=== PATIENT | female | born 1995 | race Caucasian/White ===

== ENCOUNTER 2017-06-22 09:29 | Emergency (ER) | payer OTHER ==
[~2017-06-22] VITALS: Ht 157.5 cm; Wt 57.0 kg
[2017-06-22 09:58] VITALS: BP 112/70
[2017-06-22] MEDS ORDERED: CEPH500C5 PO (11:12)
== END 2017-06-22 11:42 | disposition home or self-care (01) ==
LOC: ER 09:30
DX: L03.011 Cellulitis of right finger (principal); J45.909 Unspecified asthma, uncomplicated; F12.10 Cannabis abuse, uncomplicated; Z90.89 Acquired absence of other organs
CPT/HCPCS: 99283

== ENCOUNTER 2018-09-29 04:44 | Emergency (ER) | payer SELFPAY ==
[~2018-09-29] VITALS: Ht 160 cm; Wt 54.5 kg
[2018-09-29] MEDS ORDERED: SUMAtriptan succ. 6 MG/0.5ml vial SQ ONE (05:45)
[2018-09-29] MEDS ORDERED: morphine 4 MG/ML inj SYRINge IV ONE (05:45)
[2018-09-29] MEDS ORDERED: ketorolac tromethamine 15mg/ml inj. IV ONE (05:45)
[2018-09-29] MEDS ORDERED: proCHLORperazine 10 MG/2 ml inj IV ONE (05:45)
[2018-09-29] MEDS ORDERED: normal saline 1000ML IV soln IVB ONE (05:45)
[2018-09-29 06:16] VITALS: BP 125/73
== END 2018-09-29 06:18 | disposition home or self-care (01) ==
LOC: ER 04:45
DX: D35.2 Benign neoplasm of pituitary gland (principal); R51 Headache; H53.8 Other visual disturbances; J45.909 Unspecified asthma, uncomplicated; F12.90 Cannabis use, unspecified, uncomplicated; F15.90 Other stimulant use, unspecified, uncomplicated; F14.90 Cocaine use, unspecified, uncomplicated; F19.90 Other psychoactive substance use, unspecified, uncomplicated; F17.200 Nicotine dependence, unspecified, uncomplicated; Z98.890 Other specified postprocedural states
CPT/HCPCS: 99283; J0780; J1885; J3030

== ENCOUNTER 2024-12-17 11:34 | Day surgery (SDC) | payer MEDICAID ==
[~2024-12-17] VITALS: Ht 162.6 cm; Wt 72.7 kg
[2024-12-17] VITALS (10 sets, daily range): BP systolic 96–120; BP diastolic 53–82; PULSE 59–85; RESP 10–16; TEMP 98.4; O2SAT 99–100
[~2024-12-17 11:34] MED LIST: NO HOME MEDS
[2024-12-17] MEDS: ringers solution, lacted 1,000 ML IV SCH (12:24)
[2024-12-17] MEDS ORDERED: midazolam 1 mg/ML 2ml injection ONE (13:41)
[2024-12-17] MEDS ORDERED: fentaNYL/PF 50MCG/1 ML 2ML syringe ONE (13:41)
[2024-12-17] MEDS ORDERED: propofol inj 20 ML IV ONE ×2 (13:50)
== END 2024-12-17 15:33 | disposition home or self-care (01) ==
LOC: GI LAB 11:34
PROVIDERS: ATTEND Internal Medicine Gastroenterology
DX: K92.1 Melena (principal); F41.9 Anxiety disorder, unspecified; F32.A Depression, unspecified; Z79.899 Other long term (current) drug therapy; Z90.89 Acquired absence of other organs; Z98.890 Other specified postprocedural states
CPT/HCPCS: 45378; J2250; J2704; J3010; J7120; Z7512; A4618; A4620